=== PATIENT | female | born 1980 | race African-American/Black ===

== ENCOUNTER 2019-08-04 14:19 | Emergency (ER) | payer MEDICAID, OTHER ==
[~2019-08-04] VITALS: Ht 167.6 cm; Wt 82.1 kg
[2019-08-04 18:29] VITALS: BP 115/69
== END 2019-08-04 18:30 | disposition home or self-care (01) ==
LOC: ER 14:31
DX: S93.401A Sprain of unspecified ligament of right ankle, initial encounter (principal); X58.XXXA Exposure to other specified factors, initial encounter; Y93.89 Activity, other specified; Y92.9 Unspecified place or not applicable
CPT/HCPCS: 73610; 81025; 99283